=== PATIENT | female | born 1975 | race Caucasian/White ===

== ENCOUNTER 2017-08-13 16:51 | Outpatient (CLI) | payer BC ==
--- NOTE | 2017-08-13 18:54 | MRI ---
MRI OF CERVICAL SPINE WITHOUT CONTRAST 08/13/17 HISTORY: M54.12 - cervical radicular pain. COMPARISON: MRI 04/15/17. FINDINGS: The signal of the spinal cord is normal. The cerebellar tonsils terminate above the foramen magnum. T 2 hyperintense focus within T1 is similar dating back to 2013. There is susceptibility at C5-6 due to ACDF hardware. C2-3: No neural foraminal or spinal canal narrowing. C3-4: No significant neural foraminal or spinal canal narrowing. C4-5: Similar appearance of the left paracentral disc protrusion superimposed upon a posterior disc o steophyte complex. There is subtle mild ventral cord effacement to the left of midline. No high grade neural foraminal spinal canal narrowing. Spinal canal at this level measures just under 1 cm. C5-6: No significant neural foraminal or spinal canal narrowing. C6-7: No significant neural foraminal or spinal canal narrowing. C7-T1: No significant neural foraminal or spinal canal narrowing. IMPRESSION: Unchanged examination of the cervical spine. Left paracentral posterior disc protrusion superimposed upon posterior disc osteophyte complex with mild effacement of the ventral CSF space. No new acute moore perimposed posterior disc protrusion. POS: [facility]
== END 2017-08-13 16:52 | disposition home or self-care (01) ==
LOC: MRI 16:51
PROVIDERS: ATTEND Specialist
DX: M50.10 Cervical disc disorder with radiculopathy, unspecified cervical region (principal); M25.78 Osteophyte, vertebrae
CPT/HCPCS: 72141

== ENCOUNTER 2019-12-16 16:30 | Outpatient (CLI) | payer BC | END 2019-12-16 16:31 | disposition home or self-care (01) | LOC: SLEEPLAB 16:30 | PROVIDERS: ATTEND Family Medicine | DX: G47.33 Obstructive sleep apnea (adult) (pediatric) (principal); R06.89 Other abnormalities of breathing | CPT/HCPCS: 95801 ==

== ENCOUNTER 2020-02-03 19:30 | Outpatient (CLI) | payer BC | END 2020-02-03 19:31 | disposition home or self-care (01) | LOC: SLEEPLAB 19:30 | PROVIDERS: ATTEND Family Medicine | DX: G47.33 Obstructive sleep apnea (adult) (pediatric) (principal); R06.89 Other abnormalities of breathing; G47.10 Hypersomnia, unspecified | CPT/HCPCS: 95810 ==

== ENCOUNTER 2020-12-18 13:57 | Outpatient (CLI) | payer BC ==
[~2020-12-18 13:57] MED LIST: Magnevist 469MG/ML 20 ML VIAL ONE
== END 2020-12-18 13:58 | disposition home or self-care (01) ==
LOC: TBSIIMAG 13:57
PROVIDERS: ATTEND Neurological Surgery
DX: M54.12 Radiculopathy, cervical region (principal); M48.02 Spinal stenosis, cervical region; Z98.1 Arthrodesis status
CPT/HCPCS: 72040; 72156; A9579